=== PATIENT | male | born 1970 | race Caucasian/White ===

== ENCOUNTER 2020-06-18 04:24 | Emergency (ER) | payer MEDICAID, SELFPAY ==
[~2020-06-18] VITALS: Ht 175.3 cm; Wt 97.5 kg
[2020-06-18 04:24] VITALS: BP_SYST 132
[~2020-06-18 04:24] MED LIST: DIF100 PO; FURO-149 PO; LACT10SO7 PO; LEVO250T58 PO; PRED20TA PO; PRO40 PO; SPIR100T PO
--- NOTE | 2020-06-18 04:24 | NUR ---
ER at bedside examining patient.
--- NOTE | 2020-06-18 04:24 | NUR ---
Patient to ER bed 01 to gown for evaluation. Side rails up. Report given to JELENA Markham.
--- NOTE | 2020-06-18 04:25 | NUR ---
pt BIB ALS a&o x3 c/o of round oval puncture laceration to the left ankle after an unwitnessed fall at home in pts restroom. pts mother found pt on floor of restroom with blood all over floor. pt appears to have active bleeding at laceration site. Fire report pt lost about 500cc blood total. Fire started normal saline bolus 500mL in field. pt hx of renal failure, chronic liver disease, varicose veins.
--- NOTE | 2020-06-18 04:26 | NUR ---
# 18 gauge angiocath placed to RAC placed by FIRE. Flushed with 10 cc of normal saline. No evidence of infiltration noted. Patient tolerated well.
--- NOTE | 2020-06-18 04:30 | NUR ---
# 20 gauge angiocath placed to LAC. Use of asceptic technique. Opsite placed over site. Blood return noted. Blood for lab drawn from site. Flushed with 10 cc of normal saline. No evidence of infiltration noted. Patient tolerated well.
--- NOTE | 2020-06-18 04:40 | NUR ---
XRAY AT BEDSIDE.
--- NOTE | 2020-06-18 04:47 | NUR ---
Patient has a 1 cm round/oval laceration to left ankle. Dr. Youssef applied 2 sutures using sterile technique. Edges well approximated. Site cleansed with normal saline. No bleeding noted. Pt tolerated well.
[2020-06-18] MEDS ORDERED: LIDOCAINE 1%, 20 ML MDV 20 ML ONE (04:52)
--- NOTE | 2020-06-18 04:56 | NUR ---
pt blood pressure 65/25. pt placed in trendelenburg and 1L of normal saline bolus initiated. Addendum: 06/18/20 at 0518 by ABEL per verbal order.
[2020-06-18 05:03] LABS: WHITE BLOOD COUNT (AUTO) 17.4 K/uL (4.8-10.8)
--- NOTE | 2020-06-18 05:05 | NUR ---
pt appears to have bloody discharge from nose after he coughed and stated he needed to spit. MD aware.
[2020-06-18 05:06] LABS: CALCIUM 7.9 mg/dL (8.4-11.0); CREATININE 1.45 mg/dL (0.55-1.30); POTASSIUM 3.9 mmol/L (3.5-5.1)
[2020-06-18 05:08] LABS: HEMATOCRIT 29.5 % (36-54); HEMOGLOBIN 9.9 g/dL (14.0-18.0); MEAN CORPUSCULAR HEMOGLOBIN 36 pg (27-31); MEAN CORPUSCULAR HGB CONC 34 % (32-36); MEAN CORPUSCULAR VOLUME 108 fL (79.0-98.0); RED BLOOD CELL COUNT(AUTO) 2.73 MIL/uL (4.2-6.2); RED CELL DISTRIBUTION WIDTH 17.9 % (9.0-15.0)
[2020-06-18 05:10] LABS: PLATELET COUNT (AUTO) 49 K/uL (130-430)
--- NOTE | 2020-06-18 05:10 | NUR ---
critical lab reporting - platelet 49. notified.
--- NOTE | 2020-06-18 05:11 | NUR ---
Patient transported to radiology via GURNEY, accompanied by SAIGE.
[2020-06-18 05:14] LABS: ALBUMIN 1.7 g/dL (3.4-4.8); TOTAL BILIRUBIN 4.7 mg/dL (0.0-1.0)
--- NOTE | 2020-06-18 05:15 | NUR ---
critical lab reporting - troponin 0.069
[2020-06-18 05:22] LABS: INR 1.3 (0.80-1.20)
--- NOTE | 2020-06-18 05:25 | NUR ---
blood consent signed by pt mother and sent to lab.
[2020-06-18] MEDS ORDERED: NACL 0.9% 1,000 ML IV ONE ×2 (05:30→08:15)
[2020-06-18] MEDS ORDERED: NOREPINEPHRINE BITARTRATE 4 MG in NS 246 ML IV ONE (05:45)
[2020-06-18 05:51] LABS: ATYPICAL LYMPHOCYTES % 2 % (0-0); BAND % (MANUAL) 8 % (0-6); BASOPHILS % (MANUAL) 0 % (0-2); EOSINOPHILS % (MANUAL) 1 % (0-7); LYMPHOCYTES % (MANUAL) 30 % (20-46); METAMYELOCYTES % 3 % (0-0); MONOCYTES % (MANUAL) 4 % (0-11)
--- NOTE | 2020-06-18 05:57 | NUR ---
LEVOPHED IV DRIP INITIATED AT 2MCG/MIN PER PROTOCOL. SBP TO BE MAINTAINED GREATER THAN 90 PER MD ORDER. TITRATE BY 2MCG EVERY 5 MINS IF SBP IS LESS THAN 90.
[2020-06-18] MEDS ORDERED: NOREPINEPHRINE 4 MG/4 ML VIAL IV ONE (05:58)
--- NOTE | 2020-06-18 06:02 | NUR ---
LEVOPHED IV DRIP TITRATED TO AT 4MCG/MIN PER PROTOCOL. SBP TO BE MAINTAINED GREATER THAN 90 PER MD ORDER. TITRATE BY 2MCG EVERY 5 MINS IF SBP IS LESS THAN 90.
--- NOTE | 2020-06-18 06:07 | NUR ---
LEVOPHED IV DRIP TITRATED TO AT 6MCG/MIN PER PROTOCOL. SBP TO BE MAINTAINED GREATER THAN 90 PER MD ORDER. TITRATE BY 2MCG EVERY 5 MINS IF SBP IS LESS THAN 90.
--- NOTE | 2020-06-18 06:13 | NUR ---
LEVOPHED IV DRIP TITRATED TO AT 8MCG/MIN PER PROTOCOL. SBP TO BE MAINTAINED GREATER THAN 90 PER MD ORDER. TITRATE BY 2MCG EVERY 5 MINS IF SBP IS LESS THAN 90.
--- NOTE | 2020-06-18 06:14 | NUR ---
# 16 FR In and Out catheter with use of sterile technique. Immediate return of 15 ml CLEAR YELLOW urine noted. Urine sample collected and sent to lab. Pt tolerated procedure WELL. Patient unable to toilet self.
--- NOTE | 2020-06-18 06:17 | NUR ---
LEVOPHED IV DRIP TITRATED TO AT 10MCG/MIN PER PROTOCOL. SBP TO BE MAINTAINED GREATER THAN 90 PER MD ORDER. TITRATE BY 2MCG EVERY 5 MINS IF SBP IS LESS THAN 90.
--- NOTE | 2020-06-18 06:22 | NUR ---
LEVOPHED IV DRIP TITRATED TO AT 12MCG/MIN PER PROTOCOL. SBP TO BE MAINTAINED GREATER THAN 90 PER MD ORDER. TITRATE BY 2MCG EVERY 5 MINS IF SBP IS LESS THAN 90.
--- NOTE | 2020-06-18 06:27 | NUR ---
LEVOPHED IV DRIP TITRATED TO AT 14MCG/MIN PER PROTOCOL. SBP TO BE MAINTAINED GREATER THAN 90 PER MD ORDER. TITRATE BY 2MCG EVERY 5 MINS IF SBP IS LESS THAN 90.
--- NOTE | 2020-06-18 06:30 | NUR ---
Consent signed per PTS MOTHER agreeing to administration of blood. Blood has been type and crossmatched. Blood sent from blood bank. Information on unit of blood checked against patient wristband at bedside by two nurses. All information matches. Patient or responsible alliance party informed of potential complications associated with blood transfusion. Informed of possible transfusion reaction symptoms. Aware of need to notify nurse at once of itching, shortness of breath, flushing, feeling of impending doom, or other symptoms not previously present. Vital signs taken within 5 minutes prior to initiation of transfusion. RN will remain with patient for first 15 minutes of transfusion at which time vital signs will be re-assessed.
--- NOTE | 2020-06-18 06:32 | NUR ---
LEVOPHED IV DRIP TITRATED TO AT 16MCG/MIN PER PROTOCOL. SBP TO BE MAINTAINED GREATER THAN 90 PER MD ORDER. TITRATE BY 2MCG EVERY 5 MINS IF SBP IS LESS THAN 90.
[2020-06-18] MEDS ORDERED: VITAMIN B-1 PO (06:35)
[2020-06-18] MEDS ORDERED: FERR-69 PO (06:36)
--- NOTE | 2020-06-18 06:37 | NUR ---
LEVOPHED IV DRIP TITRATED TO AT 18MCG/MIN PER PROTOCOL. SBP TO BE MAINTAINED GREATER THAN 90 PER MD ORDER. TITRATE BY 2MCG EVERY 5 MINS IF SBP IS LESS THAN 90.
--- NOTE | 2020-06-18 06:37 | NUR ---
Medication reconciliation completed with information provided by [facility]. Any prior medication reconciliation on file was reviewed and corrected.
--- NOTE | 2020-06-18 06:42 | NUR ---
Note allison in EDM - 06/18/20 at 0728 by ABEL LEVOPHED IV DRIP TITRATED TO [id number]/MIN PER PROTOCOL. SBP TO BE MAINTAINED GREATER THAN 90 PER MD ORDER. TITRATE BY 2MCG EVERY 5 MINS IF SBP IS LESS THAN 90.
--- NOTE | 2020-06-18 06:42 | NUR ---
LEVOPHED IV DRIP TITRATED TO AT 20MCG/MIN PER PROTOCOL. SBP TO BE MAINTAINED GREATER THAN 90 PER MD ORDER. TITRATE BY 2MCG EVERY 5 MINS IF SBP IS LESS THAN 90.
--- NOTE | 2020-06-18 06:45 | NUR ---
VITAL SIGNS TAKEN 15MINS POST INITIATION OF BLOOD TRANSFUSION. patient denies itching, shortness of breath, flushing, feeling of impending doom, or other symptoms not previously present.
--- NOTE | 2020-06-18 06:47 | NUR ---
LEVOPHED IV DRIP MAINTAINED TO AT 20MCG/MIN PER PROTOCOL. SBP MAINTAINED GREATER THAN 90 PER MD ORDER. TITRATE BY 2MCG EVERY 5 MINS IF SBP IS LESS THAN 90.
--- NOTE | 2020-06-18 07:10 | NUR ---
report given to JELENA Tillman for continuation of care.
--- NOTE | 2020-06-18 07:15 | NUR ---
REPORT OBTAINED FROM MAURA BOWLES. PT IS S/P FALL AT HOME. ARRIVES TO THE ER AAOX1 VIA ACLS. nASAL TRIUMPHET IS IN PLACE TO THE LEFT NARES. LEVOPHED DRIP IS RUNNING AT 20MCG. CURRENT BP IS 102/60 (66). hr IS 140. PT IS CURRENTLY AAOX2.
--- NOTE | 2020-06-18 07:30 | NUR ---
LEVOPHED DRIP INCREASED TO 22MCG/ HR. 86/45 (41)
--- NOTE | 2020-06-18 07:39 | NUR ---
# 16 FR Pham catheter with use of sterile technique. Immediate return of 20 cc licha urine noted. Bedside drainage bag placed below level of bladder. Urine sample collected and sent to lab. Pt tolerated procedure well.
--- NOTE | 2020-06-18 07:40 | NUR ---
covid swab collected and sent the lab
[2020-06-18 08:07] LABS: BILIRUBIN,URINE 1+ (NEGATIVE); BLOOD, URINE NEGATIVE (NEGATIVE); CLARITY/URINE CLEAR (CLEAR); COLOR,URINE ORANGE (YELLOW); GLUCOSE,URINE NEGATIVE (NEGATIVE); KETONES,URINE TRACE (NEGATIVE); LEUKOCYTE ESTERASE ,URINE NEGATIVE (NEGATIVE); NITRITE, URINE NEGATIVE (NEGATIVE); PH,URINE 7.5 (5.0-8.0); PROTEIN URINE 1+ (NEGATIVE)
--- NOTE | 2020-06-18 08:10 | NUR ---
Consent signed per agreeing to administration of blood. Blood has been type and crossmatched. Blood sent from blood bank. Information on unit of blood checked against patient wristband at bedside by two nurses. All information matches. Patient or responsible libertarian informed of potential complications associated with blood transfusion. Informed of possible transfusion reaction symptoms. Aware of need to notify nurse at once of itching, shortness of breath, flushing, feeling of impending doom, or other symptoms not previously present. Vital signs taken within 5 minutes prior to initiation of transfusion. RN will remain with patient for first 15 minutes of transfusion at which time vital signs will be re-assessed.
[2020-06-18 08:11] LABS: BARBITURATE, URINE NEGATIVE (NEG <=200); BENZODIAZEPINE, URINE NEGATIVE (NEG <=150); CANNABINOID, URINE NEGATIVE (NEG <=50); COCAINE, URINE NEGATIVE (NEG <=150); METHAMPHETAMINES SCREEN,URINE NEGATIVE (NEG <=500); OPIATE, URINE NEGATIVE (NEG <=100); PHENCYCLIDINE SCREEN,URINE NEGATIVE (NEG <=25); UR TRICYCLIC ANTIDEPRESSANTS NEGATIVE (NEG <=300); URINE AMPHETAMINE NEGATIVE (NEG <=500); URINE METHADONE NEGATIVE (NEG <=200); URINE OXYCODONE SCREEN NEGATIVE (NEG <=100); URINE PROPOXYPHENE SCREEN NEGATIVE (NEG <=300)
--- NOTE | 2020-06-18 08:13 | NUR ---
TITRATED LEVOPHED DRIP TO 20MCG. BP 111/55 (73)
--- NOTE | 2020-06-18 08:22 | NUR ---
LEVOPED DRIP TITRATED TO 15 MCGS. 118/64 (77) hR 123
--- NOTE | 2020-06-18 08:36 | NUR ---
LEVOPHED DRIP TITRATED TO 12 MCGS. 125/55 (81) hR 121
--- NOTE | 2020-06-18 08:42 | NUR ---
attempted to call the pt's mother, Emil Jeannine . Message left.
--- NOTE | 2020-06-18 08:44 | NUR ---
levophed drip titirated to 10 mcg, 114/59 (76), HR 119, 100% RA
--- NOTE | 2020-06-18 08:54 | NUR ---
LEVOPHED DRIP TITRATED TO 8 MCGS. 120/61 (79) hR 113
--- NOTE | 2020-06-18 09:00 | NUR ---
report given to ED CN at [facility]. Dr. Roach is accepting .
--- NOTE | 2020-06-18 09:05 | NUR ---
levophed drip titrated to 6mcg 109/58 (75), 117
--- NOTE | 2020-06-18 09:40 | NUR ---
levophed drip dc'd current bp 101/52 (61), 117, 98% ra
--- NOTE | 2020-06-18 09:41 | NUR ---
Patient to be transferred to [facility]. Is being transferred due to higher level of care. Receiving facility has accepting physician and available space. ER physician has signed transfer form. Patient or responsible libertarian has agreed to transfer and signed form. Patient belongings inventoried and will be sent with patient. Copy of nursing notes, lab reports, EKG, Physicians Orders and X-rays to be sent with patient. Report called to ED at receiving facility. Receiving physician is Dr. Hull. [facility] has been called for transfer. ETA is [id number].
[2020-06-18 09:44] VITALS: BP_SYST 113
== END 2020-06-18 09:44 | disposition short-term general hospital (02) ==
LOC: SED 04:24
DX: S91.032A Puncture wound without foreign body, left ankle, initial encounter (principal); R57.1 Hypovolemic shock; D69.6 Thrombocytopenia, unspecified; I21.4 Non-ST elevation (NSTEMI) myocardial infarction; D64.9 Anemia, unspecified; Z20.828 Contact with and (suspected) exposure to other viral communicable diseases; Z79.899 Other long term (current) drug therapy; W18.39XA Other fall on same level, initial encounter; Y93.89 Activity, other specified; Y92.89 Other specified places as the place of occurrence of the external cause; Y99.8 Other external cause status
CPT/HCPCS: 36415; 36430; 70450; 71045; 73590; 73600; 74176; 80053; 80307; 81003; 82550; 82962; 84484; 85007; 85027; 85379; 85610; 86886; 86900; 86901; 86920; 93005; 96365; 96366; 99291; 99292; J2001; J7030; J7040; P9021; P9034; U0003; 99285